=== PATIENT | female | born 1990 | race Caucasian/White ===

== ENCOUNTER 2023-10-04 06:55 | Emergency (ER) | payer OTHER, MEDICAID, SELFPAY ==
[2023-10-04 06:57] VITALS: BP 136/93
[2023-10-04 08:30] VITALS: BP 134/87
[2023-10-04 08:35] LABS: % Basophils 0.6 % (0-2); % Eosinophils 2.4 % (0-6); % Immature Granulocytes 0.4 % (0-0.5); % Lymphocytes 28.1 % (20.5-51.1); % Monocytes 6.5 % (1.7-9.3); Absolute Basophils 0.1 10^3/uL (0-0.2); Absolute Eosinophils 0.3 10^3/uL (0-0.7); Absolute Monocytes 0.7 10^3/uL (0.1-0.6); Absolute Neutrophils 6.7 10^3/uL (1.4-6.5); Hematocrit 39.8 % (37.0-47.0); Hemoglobin 13.7 g/dL (12.0-16.0); Mean Corp Hgb Conc. 34.4 g/dL (33.0-37.0); Mean Corpuscular Hgb 28.1 pg (27.0-31.0); Mean Corpuscular Volume 81.6 fL (81.0-99.0); Mean Platelet Volume 8.7 fL (7.4-10.4); Nucleated Red Blood Cells % 0 %; Platelet Count 285 10^3/uL (130-400); Red Blood Cell Count 4.88 10^6/uL (4.20-5.40); Red Cell Dist. Width 13.6 % (11.5-14.5); White Blood Cell Count 10.8 10^3/uL (4.8-10.8)
[2023-10-04 08:40] LABS: HCG, Serum Qualitative Screen Negative
[2023-10-04 08:43] LABS: ALT (SGPT) < 10 U/L (0-35); AST (SGOT) 18 U/L (14-36); Albumin 4.2 g/dl (3.5-5.0); Alkaline Phosphatase 130 U/L (38-126); Blood Urea Nitrogen 4 mg/dl (7-17); Calcium 9.2 mg/dl (8.4-10.2); Carbon Dioxide 24 mmol/L (22-30); Chloride 103 mmol/L (98-107); Glucose 87 mg/dl (70-99); Lipase 34 U/L (23-300); Potassium 3.7 mmol/L (3.5-5.1); Sodium 134 mmol/L (135-145); Total Bilirubin 0.5 mg/dl (0.2-1.3); Total Protein 7.1 g/dl (6.3-8.2); eGFR > 60.00
--- NOTE | 2023-10-04 08:44 | ED.GENMED ---
History of Present Illness
General
Chief Complaint: Abdominal Pain
Source: patient, records and family
Exam Limitations: none
Time Seen by Provider: 10/04/23 08:29
Nursing documentation reviewed up to this point in time: agreed with
Travel History
Have you had any contact with someone who has COVID-19?: No
Do you have any symptoms of coronavirus? Fever > 100 degrees, chills, cough, shortness of breath, sore throat, loss of taste or smell, muscle aches, or headache?: No
History of Present Illness
History of Present Illness:
Patient is a 33-year-old autistic female who presents to the emergency department abdominal pain without nausea, vomiting or diarrhea. The pain started about 5 days ago. Patient went to urgent care because they thought she may have a urinary tract
infection. Patient did not. Patient's last bowel movement was 4 days ago. Patient denies any anorexia. Patient denies any back or chest pain. Patient denies fever or chills. Patient has mild pain with urination. Patient's last period was 3
weeks ago. Patient has a good appetite. Occasionally the patient has stabbing sharp pains throughout her abdomen.
Past History
Past History
ED Past Medical History: Other (Autistic, migraine headaches)
ED Past Surgical History: None
Social History
Tobacco: Non-smoker
Alcohol: None
Drug: None
Personal: Single
Living: with family
Employment: Employed
Family History
Family History: Other
Review of Systems
Review of Systems
All Other Systems: ROS reviewed and negative except as documented in HPI and ROS
Constitutional: Reports no symptoms
EENT: Reports no symptoms
Respiratory: Reports no symptoms
Cardiac: Reports no symptoms
ABD/GI: Reports abdominal pain; Denies nausea, vomiting, diarrhea or anorexia
: Reports dysuria; Denies frequency, urgency or bleeding
Musculoskeletal: Reports no symptoms
Skin: Reports no symptoms
Neurological: Reports no symptoms
Hematologic/Lymphatic: Reports no symptoms
Phy Exam
Physical Exam
Physical Exam:
Physical Exam
General: No apparent distress, alert and appropriate, obese, well hydrated
HENT: Normocephalic, supple with no lymphadenopathy, no thyromegaly
Eyes: Clear sclera, conjuctiva without injection
Heart: Regular rhythm and rate. No S3, S4. No murmur.
Lungs: No respiratory distress, no stridor, lung sounds clear and equal bilaterally
Abdomen: Soft, minimal tenderness diffusely without guarding or rebound, no organomegaly, no CVA tenderness, BS good
Neuro: Alert and usual mental status, CN II - XII intact, no motor focality, no cerebellar dysfunction
Skin: no rash
Psychiatric: well kept. interactive and cooperative
Extremities: No edema, cyanosis, tenderness, Good and equal peripheral pulses.
Course
Orders/Labs/Results
Orders:
Orders
10/04/23 07:03
Test Result ONCE
10/04/23 08:25
Complete Blood Count/With Diff Urgent
Comprehensive Metabolic Panel Urgent
HCG, Serum Qualitative Screen Urgent
Lipase Urgent
10/04/23 08:39
Abdomen Xray - 1 View [CR Abdomen - 1 View] Urgent
Comment:
Reason For Exam: diffuse pain since Saturday
10/04/23 08:50
Urinalysis Reflex To Culture Urgent
Date Specimen was Collected: 10/04/23
Time Specimen was Collected: 08:46
Urine Microscopic Reflex Cult Urgent
Abnormal Lab Results
10/04/23 10/04/23
08:25 08:50
Absolute Neuts (auto) 6.7 H 10^3/uL
(1.4-6.5)
Absolute Monos (auto) 0.7 H 10^3/uL
(0.1-0.6)
Sodium 134 L mmol/L
(135-145)
BUN 4 L mg/dl
(7-17)
Alkaline Phosphatase 130 H U/L
(38-126)
Leukocyte Esterase Rfl Trace A
(Negative)
Urine Bacteria (Reflex) Few A
(Negative)
10/04/23 08:25
10/04/23 08:25
Vital Signs
Initial and Last Documented VS:
Initial Vital Signs
Temp Pulse Resp BP Pulse Ox
98.3 F 89 18 136/93 96
10/04/23 06:57 10/04/23 06:57 10/04/23 06:57 10/04/23 06:57 10/04/23 06:57
Last Documented Vital Signs
Temp Pulse Resp BP Pulse Ox
98.3 F 74 16 126/78 100
10/04/23 06:57 10/04/23 11:44 10/04/23 11:44 10/04/23 11:44 10/04/23 11:44
*Radiology
Radiology exam reviewed: radiology read reviewed (Unremarkable)
*Pulse Oximetry
Patient hypoxic: no
*EKG
Interpreted by ED Provider?: NA
*Paving Inspector Interpretation
Rate: Paving Inspector- N/A
*Critical Care Note
Total Time (30-74mins, 75-104mins- exclusive of procedures): Not Applicable
Update Note
Update Note:
Patient feeling fine at this time. Unsure the exact etiology of her pain but may be diet related. I spoke with the patient and her mother about diet and we will discharge her
ED Attending Note
-
Portions of this chart may have been created with voice recognition software.� Occasional wrong word or��sound alike� substitutions may have occurred due to the inherent limitations of voice recognition software.
Discharge Plan
Departure
Patient Disposition: Home (Routine Discharge)
Date of Disposition: 10/04/23
Time of Disposition: 12:21
Patient with high blood pressure during this ER visit?: No
Condition: Good
Covid-19: Not Applicable
Discharge Problem:
Pain, abdominal, nonspecific
Instructions: High Fiber Diet, Abdominal Pain
Prescriptions:
No Action
citalopram 20 MG tablet
40 mg PO DAILY
risperidone [Risperdal] 0.5 MG tablet
0.5 mg PO DAILY
Control
1 tab PO .ASDIRECTED
acetazolamide 250 MG tablet
250 mg PO BID Qty: 60 0RF
mupirocin calcium 2 % cream
1 applic topical BID Qty: 15 0RF
pantoprazole [Protonix] 20 mg tablet,delayed release (DR/EC)
20 mg PO DAILY Qty: 20 0RF
Referrals:
Theodore Cardenas, DO [Family Provider] - Follow up in 5-7 days
Activity Restrictions/Additional Instructions:
Continue present medications. Increase the fiber in your diet and/or use Metamucil daily. You may also try using simethicone which can be bought [id number].
Interventions
Interventions:
*Risk Screen - Suicide Last Done: 10/04/23 06:57
*General Assessment Last Done: 10/04/23 06:57
*Neglect/Abuse Screening Last Done: 10/04/23 06:57
ED- Fall Risk Assessment Last Done: 10/04/23 12:03
*ED COVID-19 Vaccine History Last Done: 10/04/23 08:31
BS-Ybuozb-Ogkyhivdbj Assessment Last Done: 10/04/23 08:31
Discharge Date and Time
Print Language: SWEDISH
[2023-10-04 09:21] LABS: Urine Albumin Negative (Neg - Trace); Urine Bilirubin Negative (Negative); Urine Character Clear (Clear); Urine Color Yellow; Urine Glucose Negative (Negative); Urine Ketone Negative (Negative); Urine Leukocyte Trace (Negative); Urine Nitrite Negative (Negative); Urine Occult Blood Negative (Negative); Urine Specific Gravity 1.005 (<1.030); Urine Urobilinogen Negative (Neg - 1+)
[2023-10-04 10:20] VITALS: BP 130/78
[2023-10-04 10:20] LABS: Urine Bacteria Few (Negative); Urine Red Blood Cell 0-2 /HPF (0-2); Urine White Cell 0-2 /HPF (0-5)
[2023-10-04 11:44] VITALS: BP 126/78
== END 2023-10-04 12:39 | disposition home or self-care (01) ==
LOC: EMR 06:55
PROVIDERS: Emergency Medicine; EMERGENCY PHYSICIAN Emergency Medicine; FAMILY PHYSICIAN Family Medicine
DX: R10.9 Unspecified abdominal pain (principal)
CPT/HCPCS: 99284; 74018; 80053; 81003; 81015; 83690; 84703; 85025